=== PATIENT | female | born 1985 | race Caucasian/White ===

== ENCOUNTER 2022-07-05 09:15 | Emergency (ER) | payer BC ==
[~2022-07-05] VITALS: Ht 162.5 cm; Wt 72.6 kg
[2022-07-05 09:59] LABS: BILIRUBIN Negative (Negative); BLOOD 3+ (Negative); CLARITY Cloudy (Clear); COLOR Yellow (Yellow); GLUCOSE Negative (Negative); KETONE Negative (Negative); LEUKO ESTERASE Trace (Negative); NITRITE Negative (Negative)
[2022-07-05 10:40] LABS: RBC 21-30 rbc/hpf (0-2); WBC 0-2 wbc/hpf (0-5)
[2022-07-05 10:41] LABS: BACTERIA TRACE; EPITHELIAL CELLS 31-40
== END 2022-07-05 12:16 | disposition home or self-care (01) ==
LOC: ED 09:15
PROVIDERS: Student in an Organized Health Care Education/Training Program
DX: O03.9 Complete or unspecified spontaneous abortion without complication (principal); Z88.1 Allergy status to other antibiotic agents